=== PATIENT | male | born 1985 | race Caucasian/White ===

== ENCOUNTER 2021-04-22 18:03 | Emergency (ER) | payer SELFPAY ==
[~2021-04-22] VITALS: Ht 182.9 cm; Wt 90.0 kg
[2021-04-22 18:12] VITALS: BP 117/84
== END 2021-04-22 22:45 | disposition left against medical advice (07) ==
LOC: ER 18:03
DX: Z53.21 Procedure and treatment not carried out due to patient leaving prior to being seen by health care provider (principal)